=== PATIENT | female | born 1965 | race Caucasian/White ===

== ENCOUNTER 2016-09-09 00:57 | Emergency (ER) | payer MEDICARE ==
[~2016-09-09 00:57] MED LIST: *DENIES; DURA25 TOP; IVVIBRA; KAPIDEX60 MG PO; LIPITOR40 PO; LOP25 PO; NTG150 SL; OPANA ER15 MG PO; PLAVIX PO; PRIN2.5 PO; REMERON30 MG PO; ROXICODONE15 MG PO; SOMATAB PO; XANAX2 MG PO
[2016-09-09 01:24] LABS: BASOPHILS 0.4 %; BASOPHILS ABSOLUTE 0.04 10/3/uL (0.0-0.16); EOSINOPHILS 0.5 %; EOSINOPHILS ABSOLUTE 0.05 10/3/uL (0.0-0.53); HEMATOCRIT 40.5 % (36.0-48.0); HEMOGLOBIN 13.6 g/dL (12.0-16.0); IMMATURE GRANULOCYTES 0.2 %; IMMATURE GRANULOCYTES ABSOLUTE 0.02 10/3/uL (0.0-0.11); LYMPHOCYTES 43.1 %; LYMPHOCYTES ABSOLUTE 4.32 10/3/uL (0.67-4.30); MEAN CORPUS HGB CONC 33.6 g/dL (32.0-36.0); MEAN CORPUSCULAR HEMOGLOB 31.1 pg (26.0-34.0); MEAN CORPUSCULAR VOLUME 92.5 fL (80-100); MEAN PLATELET VOLUME 11.1 fL (9.2-13.0); MONOCYTES 5.8 %; MONOCYTES ABSOLUTE 0.58 10/3/uL (0.21-1.20); NEUTROPHILS ABSOLUTE 5.01 10/3/uL (2.02-8.40); PLATELET COUNT 254 10/3/uL (150-400); RBC DISTRIBUTION WIDTH 13.5 % (12.0-16.0); RED CELL COUNT 4.38 10/6/uL (4.0-5.6)
[2016-09-09 01:25] LABS: MANUAL DIFF NO %
[2016-09-09 01:33] LABS: PARTIAL THROMBO TIME 35.4 SEC (22.5-37.2); PROTIME (NOT ORD) 13.4 SEC (12.0-14.5)
[2016-09-09 01:42] LABS: CALCIUM, SERUM 9.4 MG/DL (8.5-10.4); CHEST PAIN PROFILE TAT 0 Hrs 22 Mins; CHLORIDE, SERUM 105 MMOL/L (96-112); CO2 (CARBON DIOXIDE) 29 MMOL/L (24-34); CREATININE 0.65 MG/DL (0.55-1.02); GFR AFRICAN AMERICAN 122 ML/MIN (>=60); GFR NON AFRICAN AMERICAN 105 ML/MIN (>=60); GLUCOSE, SERUM 92 MG/DL (60-99); POTASSIUM, SERUM 3.6 MMOL/L (3.5-5.3); SODIUM, SERUM 138 MMOL/L (135-148); TROPONIN I <0.02 NG/ML (<0.05)
[2016-09-09 01:45] LABS: BUN (BLOOD UREA NITROGEN) 13 MG/DL (6-23)
[2016-09-09 02:49] LABS: D-DIMER QUANTITATIVE 1.11 ug/mLFEU (< 0.50)
== END 2016-09-09 04:15 | disposition home or self-care (01) ==
LOC: ER 00:57
PROVIDERS: Specialist
DX: R07.89 Other chest pain (principal); I25.2 Old myocardial infarction; I10 Essential (primary) hypertension; Z95.5 Presence of coronary angioplasty implant and graft; Z87.891 Personal history of nicotine dependence; Z88.5 Allergy status to narcotic agent; Z79.899 Other long term (current) drug therapy
CPT/HCPCS: 71020; 71275; 80048; 83735; 84484; 85025; 85379; 85610; 85730; 93005; 99285; Q9967